=== PATIENT | female | born 1995 | race Caucasian/White ===

== ENCOUNTER → 2018-09-01 04:52 | Observation (INO) ==
[2018-09-01 03:03] LABS: Bilirubin,Urine Negative (Negative); Blood,Urine Negative (Negative); Clarity,Urine Clear (Clear); Color,Urine Yellow (Yellow); Glucose,Urine (UA) Normal (Normal); Ketones,Urine 80 mg/dL (Negative); Leukocyte Esterase,Urine Small (Negative); Nitrite,Urine Negative (Negative); Protein,Urine Negative (Neg-Trace); Specific Gravity,Urine 1.021 (1.010-1.025); Urobilinogen,Urine Normal (Normal)
[2018-09-01 03:05] LABS: Bacteria,Urine None Seen per hpf (None-Few); Hyaline Casts,Urine None Seen per lpf (None-Few); RBC,Urine 0-3 per hpf (0-3); Squamous Epithelial Cell,Urine Many per lpf (None-Few)
--- NOTE | 2018-09-01 03:19 | OB/GYN Progress Note ---
Date of Encounter: 09/01/18 Time of Encounter: 03:16 - Assessment and Plan (1) 20 weeks gestation of Current Visit: Yes Status: Acute Patient admitted for observation for lower abdominal pain in (2) Cerebral palsy with spastic/ataxic diplegia Current Visit: No Status: Chronic Subjective - Subjective Principal diagnosis: lower abdominal pain Interval history: Patient is a 23 y/o @ 20w1d presents to labor and delivery with complaints of lower abdominal pain that started around 10pm. Patient denies intercourse in past 24-48 hours, denies LOF or VB. Patient denies dysuria or urinary frequency. Patient reports history 34 week delivery. Patient reports she has a c/s under general due to CP. Patient receives care with Dr. Wu and is scheduled on 09/07/2018 for anatomy scan. Antepartum ROS: movement normal, no loss of fluid, no vaginal bleeding Objective - Vital Signs Vital Signs: Intake and Output 08/31/18 08/31/18 09/01/18 15:59 23:59 07:59 Other: Weight 58.967 kg Patient Weight 09/01/18 23:59 Weight 58.967 kg - Exam FHR comments: FHR 150 bpm per Doppler, no contractions noted on toco Auscultation: bilateral: normal Abdomen: Present: normal appearance, soft, gravid. Absent: distention, tenderness Uterus: Present: normal, other (@ umbilicus) Cervical dilation: closed Comments: Speculum exam: Moderate amount of thick white discharge noted. Vaginosis panel collected along with GC/chlamydia cultures. - Labs Labs: Abnormal lab results 80 mg/dL (Negative) H 09/01/18 02:52 Ur Leukocyte Esterase Small (Negative) H 09/01/18 02:52
[2018-09-01 03:21] LABS: Amphetamine Screen,Urine Negative ng/mL (Cutoff=1000); Barbiturate Screen,Urine Negative ng/mL (Cutoff=200); Benzodiazepines Screen,Urine Negative ng/mL (Cutoff=200); Cannabinoid Screen,Urine Negative ng/mL (Cutoff = 50); Cocaine Screen,Urine Negative ng/mL (Cutoff= 300); Opiate Screen,Urine Negative ng/mL (Cutoff=300); Phencyclidine Screen,Urine Negative ng/mL (Cutoff=25)
[2018-09-01 04:17] LABS: Candida DNA Not Detected (Not Detect); Gardnerella DNA Not Detected (Not Detect); Trichomonas DNA Not Detected (Not Detect)
== END | disposition home or self-care (01) ==
LOC: 1NENULAB
PROVIDERS: ADMIT Advanced Practice Midwife; ATTEND Advanced Practice Midwife

== ENCOUNTER → 2018-10-31 22:01 | Observation (INO) ==
[2018-10-31 19:12] LABS: Bilirubin,Urine Negative (Negative); Blood,Urine Negative (Negative); Clarity,Urine Cloudy (Clear); Color,Urine Yellow (Yellow); Glucose,Urine (UA) Normal (Normal); Ketones,Urine 40 mg/dL (Negative); Leukocyte Esterase,Urine Small (Negative); Nitrite,Urine Negative (Negative); PH,Urine 6.5 pH Units (5.0-8.0); Protein,Urine Negative (Neg-Trace); Specific Gravity,Urine 1.023 (1.010-1.025); Urobilinogen,Urine Normal (Normal)
[2018-10-31 19:13] LABS: Bacteria,Urine Few per hpf (None-Few); Hyaline Casts,Urine None Seen per lpf (None-Few); RBC,Urine 0-3 per hpf (0-3); Squamous Epithelial Cell,Urine Many per lpf (None-Few)
[2018-10-31 19:19] LABS: Amphetamine Screen,Urine Negative ng/mL (Cutoff=1000); Barbiturate Screen,Urine Negative ng/mL (Cutoff=200); Benzodiazepines Screen,Urine Negative ng/mL (Cutoff=200); Cannabinoid Screen,Urine Negative ng/mL (Cutoff = 50); Cocaine Screen,Urine Negative ng/mL (Cutoff= 300); Opiate Screen,Urine Negative ng/mL (Cutoff=300); Phencyclidine Screen,Urine Negative ng/mL (Cutoff=25)
[2018-10-31 19:22] LABS: Yeast,Urine Few per hpf (None Seen)
[2018-10-31 21:15] LABS: Basophils % 0.3 %; Eosinophils # 0.1 K/mcL (0.0-0.6); Eosinophils % 1.1 %; Hemoglobin 13.5 g/dL (11.5-15.4); Immature Granulocytes % 0.3 % (0-4); Lymphocytes # 1.7 K/mcL (0.6-4.6); Lymphocytes % 19.2 %; Mean Corpuscular HGB Conc 34.6 g/dL (31.6-35.5); Mean Corpuscular Volume 89.4 fL (83.0-100.0); Monocytes # 0.6 K/mcL (0.0-1.3); Monocytes % 6.8 %; Neutrophils # 6.5 K/mcL (1.6-8.9); Platelet Count 233 K/mcL (140-400); Red Blood Count 4.36 M/mcL (3.82-4.97); Red Cell Distribution Width 12.9 % (11.5-14.5); Segmented Neutrophils % 72.3 %
[2018-10-31 21:27] LABS: BUN/Creatinine Ratio 18 (6-26); Blood Urea Nitrogen 9 mg/dL (6-20); Calcium 8.7 mg/dL (8.6-10.3); Carbon Dioxide 21 mEq/L (23-29); Chloride 104 mEq/L (98-107); Glucose 92 mg/dL (70-105); Osmolality,Calculated 280 (280-300); Potassium 3.1 mEq/L (3.5-5.1); Sodium 136 mEq/L (136-145); eGFR For African Americans > 60 (> 60); eGFR For Non-African Americans > 60 (> 60)
--- NOTE | 2018-10-31 21:43 | Discharge Summary ---
Date of Encounter: 10/31/18 Time of Encounter: 21:42 - Discharge Diagnosis (1) 28 weeks gestation of Priority: Primary Status: Acute Comments: Follow up with Dr. Wu within 7 days PTL parameters discussed Discharge home (2) Abdominal cramping affecting Priority: Secondary Status: Acute Comments: SVE unchanged after 2 hours /-2 BMZ administered at 2000 - pt will return in 24 hours for 2nd dose. - Discharge Medications Prescriptions: No Action Pnv No.121/Iron/Folic Acid [ Multivitamin Tablet] 1 each PO DAILY #90 tablet Ondansetron ODT [Zofran ODT] 1 tab PO DAILY Home Medications: Pnv No.121/Iron/Folic Acid [ Multivitamin Tablet] 1 each PO DAILY #90 tablet 05/09/18 [Rx] Ondansetron ODT [Zofran ODT] 1 tab PO DAILY 10/31/18 [History] Allergies/Adverse Reactions: Allergy/AdvReac Type Severity Reaction Status Date / Time No Known Allergies Allergy Verified 05/09/18 15:41 Data Procedures and tests throughout hospitalization: Laboratory Tests 10/31/18 10/31/18 10/31/18 19:05 19:05 20:10 WBC 9.0 RBC 4.36 Hgb 13.5 Hct 39.0 MCV 89.4 MCH 31.0 MCHC 34.6 RDW 12.9 Plt Count 233 MPV 10.0 Immature Gran % 0.3 Seg Neutrophils % 72.3 Lymphocytes % 19.2 Monocytes % 6.8 Eosinophils % 1.1 Basophils % 0.3 Neutrophils # 6.5 Lymphocytes # 1.7 Monocytes # 0.6 Eosinophils # 0.1 Basophils # 0.0 Sodium Potassium Chloride Carbon Dioxide BUN Creatinine Est GFR ( Amer) Est GFR (Non-Af Amer) BUN/Creatinine Ratio Glucose Calculated Osmolality Calcium Urine Color Yellow Urine Clarity Cloudy A Urine pH 6.5 Ur Specific [place] 1.023 Urine Protein Negative Urine Glucose (UA) Normal Urine Ketones 40 H Urine Blood Negative Urine Nitrite Negative Urine Bilirubin Negative Urine Urobilinogen Normal Ur Leukocyte Esterase Small H Urine Microscopic RBC 0-3 Urine Microscopic WBC 5-15 H Ur Squamous Epith Cells Many H Urine Bacteria Few Hyaline Casts None Seen Urine Yeast Few H Ur Culture Indicated? YES A Urine Opiates Screen Negative Ur Buprenorphine Scrn Negative Ur Barbiturates Screen Negative Ur Phencyclidine Scrn Negative Ur Amphetamines Screen Negative U Benzodiazepines Scrn Negative Urine Cocaine Screen Negative U Marijuana (THC) Screen Negative Ur Drug Screen Interp See Below 10/31/18 20:10 WBC RBC Hgb Hct MCV MCH MCHC RDW Plt Count MPV Immature Gran % Seg Neutrophils % Lymphocytes % Monocytes % Eosinophils % Basophils % Neutrophils # Lymphocytes # Monocytes # Eosinophils # Basophils # Sodium 136 Potassium 3.1 L Chloride 104 Carbon Dioxide 21 L BUN 9 Creatinine 0.50 L Est GFR ( Amer) > 60 Est GFR (Non-Af Amer) > 60 BUN/Creatinine Ratio 18 Glucose 92 Calculated Osmolality 280 Calcium 8.7 Urine Color Urine Clarity Urine pH Ur Specific [place] Urine Protein Urine Glucose (UA) Urine Ketones Urine Blood Urine Nitrite Urine Bilirubin Urine Urobilinogen Ur Leukocyte Esterase Urine Microscopic RBC Urine Microscopic WBC Ur Squamous Epith Cells Urine Bacteria Hyaline Casts Urine Yeast Ur Culture Indicated? Urine Opiates Screen Ur Buprenorphine Scrn Ur Barbiturates Screen Ur Phencyclidine Scrn Ur Amphetamines Screen U Benzodiazepines Scrn Urine Cocaine Screen U Marijuana (THC) Screen Ur Drug Screen Interp Labs on day of discharge: Labs from last 24 hours 10/31/18 10/31/18 10/31/18 20:10 20:10 19:05 WBC 9.0 RBC 4.36 Hgb 13.5 Hct 39.0 MCV 89.4 MCH 31.0 MCHC 34.6 RDW 12.9 Plt Count 233 MPV 10.0 Immature Gran % 0.3 Seg Neutrophils % 72.3 Lymphocytes % 19.2 Monocytes % 6.8 Eosinophils % 1.1 Basophils % 0.3 Neutrophils # 6.5 Lymphocytes # 1.7 Monocytes # 0.6 Eosinophils # 0.1 Basophils # 0.0 Sodium 136 Potassium 3.1 L Chloride 104 Carbon Dioxide 21 L BUN 9 Creatinine 0.50 L Est GFR ( Amer) > 60 Est GFR (Non-Af Amer) > 60 BUN/Creatinine Ratio 18 Glucose 92 Calculated Osmolality 280 Calcium 8.7 Urine Color Yellow Urine Clarity Cloudy A Urine pH 6.5 Ur Specific [place] 1.023 Urine Protein Negative Urine Glucose (UA) Normal Urine Ketones 40 H Urine Blood Negative Urine Nitrite Negative Urine Bilirubin Negative Urine Urobilinogen Normal Ur Leukocyte Esterase Small H Urine Microscopic RBC 0-3 Urine Microscopic WBC 5-15 H Ur Squamous Epith Cells Many H Urine Bacteria Few Hyaline Casts None Seen Urine Yeast Few H Ur Culture Indicated? YES A Urine Opiates Screen Ur Buprenorphine Scrn Ur Barbiturates Screen Ur Phencyclidine Scrn Ur Amphetamines Screen U Benzodiazepines Scrn Urine Cocaine Screen U Marijuana (THC) Screen Ur Drug Screen Interp 10/31/18 19:05 WBC RBC Hgb Hct MCV MCH MCHC RDW Plt Count MPV Immature Gran % Seg Neutrophils % Lymphocytes % Monocytes % Eosinophils % Basophils % Neutrophils # Lymphocytes # Monocytes # Eosinophils # Basophils # Sodium Potassium Chloride Carbon Dioxide BUN Creatinine Est GFR ( Amer) Est GFR (Non-Af Amer) BUN/Creatinine Ratio Glucose Calculated Osmolality Calcium Urine Color Urine Clarity Urine pH Ur Specific [place] Urine Protein Urine Glucose (UA) Urine Ketones Urine Blood Urine Nitrite Urine Bilirubin Urine Urobilinogen Ur Leukocyte Esterase Urine Microscopic RBC Urine Microscopic WBC Ur Squamous Epith Cells Urine Bacteria Hyaline Casts Urine Yeast Ur Culture Indicated? Urine Opiates Screen Negative Ur Buprenorphine Scrn Negative Ur Barbiturates Screen Negative Ur Phencyclidine Scrn Negative Ur Amphetamines Screen Negative U Benzodiazepines Scrn Negative Urine Cocaine Screen Negative U Marijuana (THC) Screen Negative Ur Drug Screen Interp See Below Date of admission: 10/31/18 18:36 Discharging clinician: Lakshmi Brooks Anticipated date of discharge: 10/31/18 - Patient Status Disposition: Home, Self-Care Condition: Good Functional capacity at discharge: independent ambulation Overall status at discharge: patient is progressing back to baseline - Discharge Instructions Follow Up With: aLkshmi Wu MD [Partnered Physician] - - Diet and Activity Activity: increase activity as tolerated Diet: regular diet 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 She states that started the night of October 29. She called Dr. Suarez and was advised to come in to be seen. She declined to follow this advice because the cramping stopped. She reports she was on this on all day yesterday and all day today in the cramping return this afternoon when she was in the pool. She reports she has not drink very much water. She does have a history of labor and so her cervix was examined and found to be 1/70/-2. She was monitored for 2 hours with no contractions. She was given a liter bolus of LR. Cervix was unchanged after 2 hours. She will return tomorrow evening at 2000 for second dose of betamethasone. Time Attestation: Total time spent providing and/or coordinating discharge services: Time Spent: Less than 30 minutes Exam - Constitutional General appearance IM: A&O X 3, pleasant, no acute distress, thin, answers questions appropriately - Respiratory Respiratory exam: Present: CTAB - Cardiovascular Cardiovascular exam IM: Present: RRR, +S1, +S2 - GI/Abdominal GI/Abdominal exam IM: normal bowel sounds, no peritoneal signs - Rectal Rectal exam: deferred - Uterine Tone: Firm - Extremities Exam Extremities exam IM: Present: full ROM, normal capillary refill, normal inspection, radial pulses palpable and symmetrical - Neurological Exam Neurological exam: alert, CN II-XII intact, normal gait, oriented X3, reflexes normal, no focal deficits, strengths equal and symetr throughout - VTE Reasons for not Prescribing Prophylaxis: Treatment not Indicated - Low risk for VTE
[~2018-10-31 22:01] MED LIST: Betamethasone Acet/SodPhos 30 MG/5 ML VIAL IM SCH; Ringers Solution, Lactated 1,000 ML IVC ONE
== END | disposition home or self-care (01) ==
LOC: 1NENULAB
PROVIDERS: ADMIT Obstetrics & Gynecology; ATTEND Obstetrics & Gynecology

== ENCOUNTER 2018-12-15 17:33 | Observation (INO) ==
[2018-12-15 18:19] LABS: Bilirubin,Urine Small (Negative); Blood,Urine Negative (Negative); Clarity,Urine Clear (Clear); Color,Urine Yellow (Yellow); Glucose,Urine (UA) 100 mg/dL (Normal); Ketones,Urine Negative (Negative); Leukocyte Esterase,Urine Small (Negative); Nitrite,Urine Negative (Negative); Protein,Urine Negative (Neg-Trace); Specific Gravity,Urine 1.026 (1.010-1.025); Urobilinogen,Urine Normal (Normal)
[2018-12-15 18:21] LABS: Bacteria,Urine Few per hpf (None-Few); Hyaline Casts,Urine None Seen per lpf (None-Few); Squamous Epithelial Cell,Urine Many per lpf (None-Few)
[2018-12-15 18:29] LABS: Amphetamine Screen,Urine Negative ng/mL (Cutoff=1000); Barbiturate Screen,Urine Negative ng/mL (Cutoff=200); Benzodiazepines Screen,Urine Negative ng/mL (Cutoff=200); Cannabinoid Screen,Urine Negative ng/mL (Cutoff = 50); Cocaine Screen,Urine Negative ng/mL (Cutoff= 300); Opiate Screen,Urine Negative ng/mL (Cutoff=300); Phencyclidine Screen,Urine Negative ng/mL (Cutoff=25)
--- NOTE | 2018-12-15 19:37 | Discharge Summary ---
Date of Encounter: 12/15/18 Time of Encounter: 19:38 - Discharge Diagnosis (1) 35 weeks gestation of Priority: Primary Status: Acute Comments: Patient her for labor evaluation No cervical change during exam Dr. Newton aware of exam. Patient was offered to stay for IV hydration. Patient declined and asked to go home at this time. - Discharge Medications Prescriptions: No Action Pnv No.121/Iron/Folic Acid [ Multivitamin Tablet] 1 each PO DAILY #90 tablet Ondansetron ODT [Zofran ODT] 1 tab PO DAILY Tylenol 500 mg Home Medications: Pnv No.121/Iron/Folic Acid [ Multivitamin Tablet] 1 each PO DAILY #90 tablet 05/09/18 [Rx] Ondansetron ODT [Zofran ODT] 1 tab PO DAILY 10/31/18 [History] Tylenol 500 mg 12/15/18 [History] Allergies/Adverse Reactions: Allergy/AdvReac Type Severity Reaction Status Date / Time No Known Allergies Allergy Verified 05/09/18 15:41 Data Procedures and tests throughout hospitalization: Laboratory Tests 12/15/18 12/15/18 18:00 18:00 Urine Color Yellow Urine Clarity Clear Urine pH 6.0 Ur Specific [place] 1.026 H Urine Protein Negative Urine Glucose (UA) 100 H Urine Ketones Negative Urine Blood Negative Urine Nitrite Negative Urine Bilirubin Small H Urine Urobilinogen Normal Ur Leukocyte Esterase Small H Urine Microscopic RBC 5-15 H Urine Microscopic WBC 3-5 H Ur Squamous Epith Cells Many H Urine Bacteria Few Hyaline Casts None Seen Ur Culture Indicated? YES A Urine Opiates Screen Negative Ur Buprenorphine Scrn Negative Ur Barbiturates Screen Negative Ur Phencyclidine Scrn Negative Ur Amphetamines Screen Negative U Benzodiazepines Scrn Negative Urine Cocaine Screen Negative U Marijuana (THC) Screen Negative Ur Drug Screen Interp See Below Labs on day of discharge: Labs from last 24 hours 12/15/18 12/15/18 18:00 18:00 Urine Color Yellow Urine Clarity Clear Urine pH 6.0 Ur Specific [place] 1.026 H Urine Protein Negative Urine Glucose (UA) 100 H Urine Ketones Negative Urine Blood Negative Urine Nitrite Negative Urine Bilirubin Small H Urine Urobilinogen Normal Ur Leukocyte Esterase Small H Urine Microscopic RBC 5-15 H Urine Microscopic WBC 3-5 H Ur Squamous Epith Cells Many H Urine Bacteria Few Hyaline Casts None Seen Ur Culture Indicated? YES A Urine Opiates Screen Negative Ur Buprenorphine Scrn Negative Ur Barbiturates Screen Negative Ur Phencyclidine Scrn Negative Ur Amphetamines Screen Negative U Benzodiazepines Scrn Negative Urine Cocaine Screen Negative U Marijuana (THC) Screen Negative Ur Drug Screen Interp See Below Date of admission: 12/15/18 17:33 Discharging clinician: Jeannie Stock Anticipated date of discharge: 12/15/18 - Patient Status Disposition: Home, Self-Care Condition: Good Functional capacity at discharge: independent ambulation - Discharge Instructions Follow Up With: Lakshmi Wu MD [Partnered Physician] - - Diet and Activity Activity: increase activity as tolerated Diet: regular diet 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 Patient is unsure if pain is labor or related to her CP. Patient denies LOF, VB or regular contractions. Time Attestation: Total time spent providing and/or coordinating discharge services: Time Spent: Less than 30 minutes Exam - Constitutional General appearance IM: A&O X 3, pleasant, answers questions appropriately - Respiratory Respiratory exam: Present: CTAB - Cardiovascular Cardiovascular exam IM: Present: RRR, +S1, +S2 - GI/Abdominal GI/Abdominal exam IM: normal bowel sounds - Extremities Exam Extremities exam IM: Present: full ROM, normal capillary refill, normal inspection - Neurological Exam Neurological exam: alert, oriented X3, reflexes normal - Other Additional findings: FHR 145 bpm moderate variability +15x15 accels no decels noted. Contractions 2-3 min apart. CAt. 1 tracing. SVE 2/50 per RN - VTE Reasons for not Prescribing Prophylaxis: Treatment not Indicated - Low risk for VTE
== END 2018-12-15 19:40 | disposition home or self-care (01) ==
LOC: 1NENULAB
PROVIDERS: ADMIT Advanced Practice Midwife; ATTEND Advanced Practice Midwife

== ENCOUNTER 2018-12-30 14:26 | Observation (INO) ==
[2018-12-30 15:16] LABS: Bilirubin,Urine Small (Negative); Blood,Urine Negative (Negative); Clarity,Urine Turbid (Clear); Color,Urine Dark Yellow (Yellow); Glucose,Urine (UA) Normal (Normal); Ketones,Urine 15 mg/dL (Negative); Leukocyte Esterase,Urine Moderate (Negative); Nitrite,Urine Negative (Negative); PH,Urine 5.5 pH Units (5.0-8.0); Protein,Urine Trace mg/dL (Neg-Trace); Specific Gravity,Urine 1.026 (1.010-1.025); Urobilinogen,Urine Normal (Normal)
[2018-12-30 15:22] LABS: Bacteria,Urine Few per hpf (None-Few); RBC,Urine 0-3 per hpf (0-3); Squamous Epithelial Cell,Urine Many per lpf (None-Few); WBC,Urine 30-50 per hpf (0-3)
[2018-12-30 15:35] LABS: Amphetamine Screen,Urine Negative ng/mL (Cutoff=1000); Barbiturate Screen,Urine Negative ng/mL (Cutoff=200); Benzodiazepines Screen,Urine Negative ng/mL (Cutoff=200); Cannabinoid Screen,Urine Negative ng/mL (Cutoff = 50); Cocaine Screen,Urine Negative ng/mL (Cutoff= 300); Opiate Screen,Urine Negative ng/mL (Cutoff=300); Phencyclidine Screen,Urine Negative ng/mL (Cutoff=25)
[2018-12-30 15:42] LABS: Mucus,Urine Few (Few)
--- NOTE | 2018-12-30 15:55 | OB/GYN Progress Note ---
Date of Encounter: 12/30/18 Time of Encounter: 15:55 - Assessment and Plan (1) 37 weeks gestation of Current Visit: Yes Status: Acute NST reactive Urinalysis - dehydrated Encouraged PO hydration RX given for phenergan Discharge home with labor precautions Follow up in the office with routine care and PRN POC per consult with Dr Newton (2) NST (non-stress test) reactive Current Visit: Yes Status: Acute (3) Dehydration Current Visit: Yes Status: Acute (4) Nausea and vomiting during Current Visit: Yes Status: Acute Subjective - Subjective Principal diagnosis: Cramping and feeling faint Interval history: Ms Plunkett is a at 34 weeks and 4 days that presents to triage with c/o cramps that took her breath away and made her feel like she was going to faint. She states positive movement. She denies headaches, vision changes, epigastric pain, leaking of fluid, and vaginal bleeding. She has had one previous C/S and is planning on a repeat with a tubal. She is seen by Dr Wu for her care. Patient states that the past few days her zofran is no longer keeping her nausea and vomiting under control and she is unable to keep her meals down. Antepartum ROS: movement normal, contractions, no loss of fluid, no vaginal bleeding Objective - Vital Signs Vital Signs: Intake and Output 12/29/18 12/30/18 12/30/18 23:59 07:59 15:59 Other: Weight 65.2 kg Patient Weight 12/30/18 23:59 Weight 65.2 kg - Exam FHR: auscultation normal, category 1 FHR comments: Baseline 155 with moderate variability and >15 x 15 accels and no decels. 2 contractions noted during her time here. Auscultation: bilateral: normal Abdomen: Present: normal appearance, soft, gravid Uterus: Present: normal. Absent: firm Cervical dilation: 1 - Labs Labs: Abnormal lab results Urine Clarity Turbid (Clear) A 12/30/18 14:50 Ur Specific [place] 1.026 (1.010-1.025) H 12/30/18 14:50 Urine Ketones 15 mg/dL (Negative) H 12/30/18 14:50 Urine Bilirubin Small (Negative) H 12/30/18 14:50 Ur Leukocyte Esterase Moderate (Negative) H 12/30/18 14:50 Urine Microscopic WBC 30-50 per hpf (0-3) H 12/30/18 14:50 Ur Squamous Epith Cells Many per lpf (None-Few) H 12/30/18 14:50 Ur Culture Indicated? YES (NO) A 12/30/18 14:50
== END 2018-12-30 16:01 | disposition home or self-care (01) ==
LOC: 1NENULAB
PROVIDERS: ADMIT Advanced Practice Midwife; ATTEND Advanced Practice Midwife

== ENCOUNTER 2019-01-13 09:00 | Inpatient (IN) ==
[2019-01-13] MEDS ORDERED: Metoclopramide 10 MG/2 ML VIAL IVP ONE (09:16)
[2019-01-13] MEDS ORDERED: CeFAZolin Premix DUPLEX 2,000 MG/50 ML BAG IVPB ONE (09:16)
[2019-01-13] MEDS ORDERED: Ringers Solution, Lactated 1,000 ML IVC ONE (09:16)
[2019-01-13] MEDS ORDERED: Famotidine 20 MG/2 ML VIAL IVP ONE (09:16)
[2019-01-13] MEDS ORDERED: Ringers Solution, Lactated 1,000 ML IVC SCH (09:30)
[2019-01-13 10:20] LABS: Basophils % 0.5 %; Eosinophils % 0.5 %; Hematocrit 40.2 % (35.3-44.9); Hemoglobin 13.4 g/dL (11.5-15.4); Immature Granulocytes % 0.1 % (0-4); Lymphocytes # 1.6 K/mcL (0.6-4.6); Mean Corpuscular HGB Conc 33.3 g/dL (31.6-35.5); Mean Corpuscular Hemoglobin 28.9 pg (28.0-33.3); Mean Corpuscular Volume 86.8 fL (83.0-100.0); Mean Platelet Volume 10.7 fL (9.4-12.4); Monocytes # 0.5 K/mcL (0.0-1.3); Monocytes % 6.1 %; Neutrophils # 5.2 K/mcL (1.6-8.9); Platelet Count 242 K/mcL (140-400); Red Blood Count 4.63 M/mcL (3.82-4.97); Red Cell Distribution Width 13.1 % (11.5-14.5); Segmented Neutrophils % 70.8 %; White Blood Count 7.4 K/mcL (4.3-11.1)
[2019-01-13 10:31] LABS: Amphetamine Screen,Urine Negative ng/mL (Cutoff=1000); Barbiturate Screen,Urine Negative ng/mL (Cutoff=200); Benzodiazepines Screen,Urine Negative ng/mL (Cutoff=200); Cannabinoid Screen,Urine Negative ng/mL (Cutoff = 50); Cocaine Screen,Urine Negative ng/mL (Cutoff= 300); Opiate Screen,Urine Negative ng/mL (Cutoff=300); Phencyclidine Screen,Urine Negative ng/mL (Cutoff=25)
--- NOTE | 2019-01-13 10:54 | History & Physical Report ---
Date of Encounter: 01/13/19 Time of Encounter: 10:52 24 Hour HP Update - Instructions Instructions: If the History and Physical is less than 30 days old and was completed prior to A.M. admission and or procedure and has NOT been updated on calendar day of procedure please complete this update prior to performing procedure. - Update Patient reports changes in Medical Condition: Yes Changes in examination, assessment, or condition: Yes Changes in Medication: No Preop tests/diagnostics Reviewed: Yes Pre-Op MRSA Screen: Negative Surgery Remains Indicated: Yes Consent for Planned Operative Procedure(s) Verified: Yes - Pre-Operative Checklist Preoperative Checklist Indicated: Yes Prophylactic Antibiotic Ordered: Yes Home Medications Include Beta Binh: No Beta Binh Taken Today (Day of Surgery): No Beta Binh Taken Yesterday (Day Prior to Surgery): No Is VTE Prophylaxis Indicated?: Yes (Patient with complaints of nausea and vomiting and anxiety attack. Discussed exam and findings with fevers. No sore throat. No head congestion.)
[2019-01-13] MEDS ORDERED: *HR* Promethazine 25 MG/ML VIAL IVP ONE (10:57)
[2019-01-13] MEDS ORDERED: Scopolamine Patch 1.5 MG PATCH.TD72 TD ONE ×2 (10:58→10:59)
[2019-01-13] MEDS ORDERED: Dexamethasone 4 MG/ML VIAL IVP ONE (10:59)
[2019-01-13] MEDS ORDERED: *HR* Promethazine 25 MG/ML VIAL IVP PRN (10:59)
[2019-01-13] MEDS ORDERED: Ondansetron 4 MG/2 ML VIAL IVP PRN ×2 (11:01→15:55)
[2019-01-13] MEDS ORDERED: Oxytocin 20 units/ LR 1000 mL 40 UNIT/2,000 ML BAG IVC ONE (11:02)
[2019-01-13] MEDS ORDERED: Acetaminophen IV 1,000 MG/100 ML INFUS..BTL IVPB ONE (11:02)
[2019-01-13] MEDS ORDERED: *HR* Morphine Sulfate/PF 10 MG/10 ML AMPUL ONE (11:07)
[2019-01-13] MEDS ORDERED: *HR* FentaNYL (PF) 100 MCG/2 ML VIAL ONE (11:07)
[2019-01-13] MEDS ORDERED: *HR* Oxytocin 10 UNIT/ML VIAL IM ONE (11:12)
[2019-01-13] MEDS ORDERED: Ringers Solution, Lactated 1,000 ML ONE (11:12)
[2019-01-13] MEDS ORDERED: *HR* Phenylephrine 10 MG/ML VIAL ONE (11:49)
--- NOTE | 2019-01-13 12:32 | OB/GYN Procedure Note ---
Section - Date of procedure: 01/13/19 Preop diagnosis: desires repeat , desires sterilization Post-op diagnosis: same Procedure: section, bilateral tubal ligation Surgeon: Radha Finch Quantitated Blood Loss: 500 Was there an operations and intelligence assistant present: No Anesthesiologist: Jannette Foy Access Rn: Isaac Garcia Anesthesia Type: Spinal section complications: none Disposition: Post floor Specimens: Cord blood, Right tube segment, Left tube segment - Infant (s) A Delivery Date: 01/13/19 Infant Delivery Time: 11:59 Presentation: vertex Position: JOHNNY Route of delivery: other Gender: Male Viability: Viable Pounds: 7 Ounces: 0 Gram Weight: 3.18 kg at 1 minute: 8 at 5 minutes: 9 Shoulder Dystocia: not encountered Specimens collected: cord blood Placenta: partial extraction Cord: 3 umbilical vessels - Narrative Narrative: Prep diagnosis is term , prior section, desires sterilization Postoperative diagnosis: Same Surgeon: Dr. Finch Anesthesia: Spinal Blood loss: 500 mL Medications: None Specimens: Cord blood Findings: Viable male vertex presentation Apgars 8 and 9 at one and 5 minutes respectively. Normal-appearing uterus and adnexa Deery and was taken to the operating suite and after adequate spinal anesthesia was assured prepped and draped in the usual sterile fashion. A Pfannenstiel incision was created and taken down through the subcutaneous fat and fascia to the rectus muscles. Rectus muscles were divided in the midline perineal cavity was entered superiorly without consequence to bowel or bladder. Bladder flap was created. Uterus was entered in a low transverse fashion. Viable male was atraumatically delivered from the uterus without difficulty. Cord was doubly clamped and cut and infant handed to our nurses in attendance. When all placental fragments were swept clean from the uterus the uterus was closed 2 lengths of Vicryl running interlocked fashion. Copious irrigation was performed surgical sites were inspected and hemostasis was assured. Bilateral fallopian tubes were identified by their fimbriated end. A midportion of tube was elevated doubly suture ligated and transected. Hemostasis was assured. The uterus was replaced within the abdominal cavity. Irrigation was performed. S urgical sites were inspected and ensured to be correct 2. When all sponge lap and needle and instrument counts correct 2 the fascia was closed with 2 lengths of Vicryl. The skin was closed with geoff. And the procedure all sponge lap needle and instrument counts were correct 2. The patient her partner and the baby were together without any difficulty.
--- NOTE | 2019-01-13 12:43 | Anesthesia Evaluation PreOp ---
Date of Encounter: 01/13/19 Time of Encounter: 11:15 - Past History Planned Operation: Repeat C/S + BPS Cardiac History: Denies any Significant Hx Pulmonary History: Denies Any Significant HX BEVELER History: Other (cerebral palsy) Other Medical History: Denies Any Significant HX Anesthesia History: No Prior Anesthetic Complications (denies personal and family h/o GA complications), Past Anesthesia (C/S x 1 under GA) : Yes Alcohol Use: none Drug use: none Medications and Allergies No Known Home Drugs 01/13/19 [History] Allergy/AdvReac Type Severity Reaction Status Date / Time No Known Allergies Allergy Verified 01/13/19 09:41 - Meds/Allergy Pre-op Review Medications Reviewed: Yes Allergies Reviewed: Yes Beta Blockers on Current Med List: No Anesthesia Results - Labs 01/13/19 09:58 Anesthesia Exam O2 Sat Height 1.68 m Height 1.68 m Weight 66.1 kg Weight 66.1 kg NPO (# of Hours): solids > 8hrs Pain Scale: 0 Pain Scale Used: Numeric (1 - 10) - HEENT Pupil (Motor): Pupils equal Mallampati: II Teeth: Normal Oral Opening: Greater than 3 - BEVELER LOC: Oriented BEVELER Motor: Normal RUE, Normal LUE, Normal Face, Deficit RLE, Deficit LLE BEVELER Sensory: Normal: RUE, LUE, RLE, LLE, Face - Cardiac Rhythm: Regular Murmur: None - Pulmonary Breath Sounds: bilateral Clear Respiratory Effort: Symmetrical Anesthesia Assess/Plan ASA Score: 2 Level of consciousness: Cooperative, Oriented, Anxious Anesthetic Plan: Spinal (patient's BLE are mal-rotated inwards, RLE > LLE resulting in gait disturbances for patient. Patient denies foot drop. Patient does have lower back pain that she attributes to her CP.) Autologous Blood: No Monitoring Plan: Standard Monitors Recovery Plan: PACU
--- NOTE | 2019-01-13 12:48 | Anesthesia Procedures ---
Date of Encounter: 01/13/19 Time of Encounter: 11:42 Procedures: Anesthesia - Epidural/Spinal Patient ID/Chart reviewed: Yes Patient examined: Yes OB Eval: Gestational age: 39 weeks 2 days OB Eval: : 2 OB Eval: Hx Para: 1 OB Eval: Contractions: Non-stressed pattern Consent Obtained: Yes Supplemental Oxygen: None/Room Air Site Prep: Aseptic Technique, Sterile prep and drape, 0.5% Chlorhexidine/Alcohol Patient position: upright Local Anesthetic: Lidocaine 1% Amount of Local Anesthetic used: 3 Interspace Used: L4-L5 Blood: No CSF: Yes Paresthesia: No Spinal Needle Gauge: 25 (3.5" pencan needle) Spinal Dose: see anesthesia record Procedure: successful on 1st attempt; patient tolerated procedure well; VSS Vitals + FHT's: see anesthesia record
--- NOTE | 2019-01-13 12:50 | Anesthesia Evaluation Post Op ---
Date of Encounter: 01/13/19 Time of Encounter: 12:49 - Vital Signs Vital Signs: 92/50, HR 63, SpO2 93%, T97.8F, RR16 - Lungs Lungs: Clear Ascult./Percussion - Airway Airway: Non-obstructed - Cardiovascular Regular Rate - Mental Status Mental Status: Alert & Oriented, Answers Appropriately - Pain Pain Scale: 0 Pain Scale used: Numeric (1 - 10) - Nausea Vomiting Nausea Vomiting: Not Present - Hydration Hydration: NPO - Discharge PostOp Status: Transfer Patient to floor
[2019-01-13] MEDS ORDERED: Simethicone 80 MG TAB.CHEW PO PRN (15:55)
[2019-01-13] MEDS ORDERED: Metoclopramide 10 MG/2 ML VIAL IVP PRN (15:55)
[2019-01-13] MEDS ORDERED: Acetaminophen 325 MG TABLET PO PRN (15:55)
[2019-01-13] MEDS ORDERED: Rho Immune Globulin 1,500 UNIT SYRINGE IM ONE (15:55)
[2019-01-13] MEDS ORDERED: Sennosides 8.6 MG TABLET PO PRN (15:55)
[2019-01-13] MEDS ORDERED: Oxytocin 20 units/ LR 1000 mL 20 UNIT/1,000 ML BAG IVC SCH (15:55)
[2019-01-13] MEDS ORDERED: Menthol 9.1 MG LOZENGE PO PRN (19:36)
[2019-01-13] MEDS: Ibuprofen 600 MG TABLET PO PRN (19:48)
[2019-01-14] MEDS: *HR* OxyCODONE/APAP 5/325 TABLET PO PRN ×4 (04:24→23:32)
[2019-01-14 05:59] LABS: Basophils % 0.2 %; Eosinophils % 0.2 %; Hematocrit 32.8 % (35.3-44.9); Immature Granulocytes % 0.3 % (0-4); Lymphocytes # 1.9 K/mcL (0.6-4.6); Lymphocytes % 15.7 %; Mean Corpuscular HGB Conc 32.9 g/dL (31.6-35.5); Mean Corpuscular Hemoglobin 29.4 pg (28.0-33.3); Mean Corpuscular Volume 89.4 fL (83.0-100.0); Mean Platelet Volume 10.9 fL (9.4-12.4); Monocytes # 0.9 K/mcL (0.0-1.3); Platelet Count 206 K/mcL (140-400); Red Blood Count 3.67 M/mcL (3.82-4.97); Red Cell Distribution Width 12.7 % (11.5-14.5); Segmented Neutrophils % 76.6 %
[2019-01-14 06:10] LABS: Hemoglobin 10.8 g/dL (11.5-15.4); Neutrophils # 9.4 K/mcL (1.6-8.9); White Blood Count 12.2 K/mcL (4.3-11.1)
[2019-01-14] MEDS: Ibuprofen 600 MG TABLET PO PRN ×3 (08:13→23:32)
[2019-01-14] MEDS: Prenatal Vit/FA 1 EACH TABLET PO SCH (08:13)
--- NOTE | 2019-01-14 11:04 | OB/GYN Progress Note ---
Date of Encounter: 01/14/19 Time of Encounter: 11:01 - Assessment and Plan (1) Status post repeat low transverse section Current Visit: Yes Status: Acute continue routine postop/ care anticipate discharge home tomorrow (2) Cerebral palsy with spastic/ataxic diplegia Current Visit: No Status: Chronic Subjective - Subjective Principal diagnosis: Postop day 1 repeat c/s with BPS Interval history: Patient is postop day 1 repeat c/s with BPS. Patient is meeting day 1 milesto ellen. She is passing gas and ambulating without difficulty. She has geoff for incision closure. Patient reports: appetite normal, voiding normally, pain well controlled, amb ulating normally [place]: doing well, nursing well, bottle feeding Objective - Vital Signs Latest vital signs: Vital Signs Temp Pulse Resp BP Pulse Ox 01/14/19 08:00 97.8 F 73 16 126/89 01/14/19 04:39 97.9 F 77 16 129/93 98 01/14/19 00:05 98.6 F 77 14 108/70 96 01/13/19 20:16 99.1 F 71 15 132/89 95 01/13/19 17:48 98.4 F 61 16 137/85 95 01/13/19 16:41 98.2 F 57 16 133/85 96 01/13/19 16:09 98.0 F 57 16 128/82 96 01/13/19 14:45 98.4 F 51 16 129/84 97 Intake and Output 01/13/19 01/14/19 01/14/19 23:59 07:59 15:59 Intake Total 240 / 480 240 / 480 Output Total 300 / 300 770 / 770 Balance -300 / -300 -530 / -290 240 / -290 Intake: Oral 240 / 480 240 / 480 Output: Catheter 300 / 300 770 / 770 Other: Meal Breakfast Percent of Meal Consumed 90% Stool Characteristics Normal for Patient Weight 65.589 kg Patient Weight 01/14/19 23:59 Weight 65.589 kg - Exam Lungs: bilateral: normal Chest: Normal S1, Normal S2 Extremities: Present: normal Abdomen: Present: normal appearance, soft, gravid Incision: Present: normal, dry, intact, dressed Uterus: Present: normal, firm Fundal Height: 3 (U/3) - Labs Labs: Laboratory Results - last 24 hr 01/14/19 05:29 WBC 12.2 H D RBC 3.67 L Hgb 10.8 L D Hct 32.8 L MCV 89.4 MCH 29.4 MCHC 32.9 RDW 12.7 Plt Count 206 MPV 10.9 Immature Gran % 0.3 Seg Neutrophils % 76.6 Lymphocytes % 15.7 Monocytes % 7.0 Eosinophils % 0.2 Basophils % 0.2 Neutrophils # 9.4 H Lymphocytes # 1.9 Monocytes # 0.9 Eosinophils # 0.0 Basophils # 0.0
[2019-01-15] MEDS: *HR* OxyCODONE/APAP 5/325 TABLET PO PRN ×2 (05:32→10:34)
[2019-01-15] MEDS: Ibuprofen 600 MG TABLET PO PRN ×2 (05:32→14:16)
[2019-01-15 07:39] VITALS: BP 125/89
[2019-01-15] MEDS: Prenatal Vit/FA 1 EACH TABLET PO SCH (08:42)
--- NOTE | 2019-01-15 13:41 | Discharge Summary ---
Date of Encounter: 01/15/19 Time of Encounter: 13:36 - Discharge Diagnosis (1) Status post repeat low transverse section Priority: Primary Status: Acute Comments: S/P Repeat Delivery with BPS Day 2. VSS Pain is well controlled Lochia is light and without clots Tolerating regular diet, passing flatus Voiding without difficulty Bottle feeding Discharge home today POC per consult with Dr Rodriguez - Discharge Medications Prescriptions: New Docusate [Colace] 100 mg PO BID #30 capsule Menthol [Cough Drops] 9.1 mg PO Q2H PRN lozenge PRN Reason: Cough Ferrous Sulfate 325 mg PO DAILY@0800 #90 tablet Simethicone [Gas-X] 80 mg PO TID PRN tab.chew PRN Reason: Dyspepsia Ibuprofen [Motrin] 600 mg PO Q6HR PRN #30 tablet PRN Reason: Cramping OxyCODONE/APAP 5/325 [Percocet 5/325 MG] 1 each PO Q6H PRN 5 Days #20 tablet PRN Reason: Moderate pain 4-6 Acetaminophen [Tylenol] 325 mg PO Q6HR PRN tablet PRN Reason: Fever/Pain Home Medications: Acetaminophen [Tylenol] 325 mg PO Q6HR PRN tablet 01/15/19 [Rx] Docusate [Colace] 100 mg PO BID #30 capsule 01/15/19 [Rx] Ferrous Sulfate 325 mg PO DAILY@0800 #90 tablet 01/15/19 [Rx] Ibuprofen [Motrin] 600 mg PO Q6HR PRN #30 tablet 01/15/19 [Rx] Menthol [Cough Drops] 9.1 mg PO Q2H PRN lozenge 01/15/19 [Rx] OxyCODONE/APAP 5/325 [Percocet 5/325 MG] 1 each PO Q6H PRN 5 Days #20 tablet 01/15/19 [Rx] Simethicone [Gas-X] 80 mg PO TID PRN tab.chew 01/15/19 [Rx] Allergies/Adverse Reactions: Allergy/AdvReac Type Severity Reaction Status Date / Time No Known Allergies Allergy Verified 01/13/19 09:41 Data Procedures and tests throughout hospitalization: Laboratory Tests 01/13/19 01/13/19 01/14/19 09:50 09:58 05:29 WBC 7.4 12.2 H D RBC 4.63 3.67 L Hgb 13.4 10.8 L D Hct 40.2 32.8 L MCV 86.8 89.4 MCH 28.9 29.4 MCHC 33.3 32.9 RDW 13.1 12.7 Plt Count 242 206 MPV 10.7 10.9 Immature Gran % 0.1 0.3 Seg Neutrophils % 70.8 76.6 Lymphocytes % 22.0 15.7 Monocytes % 6.1 7.0 Eosinophils % 0.5 0.2 Basophils % 0.5 0.2 Neutrophils # 5.2 9.4 H Lymphocytes # 1.6 1.9 Monocytes # 0.5 0.9 Eosinophils # 0.0 0.0 Basophils # 0.0 0.0 Urine Opiates Screen Negative Ur Buprenorphine Scrn Negative Ur Barbiturates Screen Negative Ur Phencyclidine Scrn Negative Ur Amphetamines Screen Negative U Benzodiazepines Scrn Negative Urine Cocaine Screen Negative U Marijuana (THC) Screen Negative Ur Drug Screen Interp See Below Date of admission: 01/13/19 09:06 Primary care physician: PCP NONE Discharging clinician: Lakshmi Mayer Anticipated date of discharge: 01/15/19 - Patient Status Disposition: Home, Self-Care Condition: Good Functional capacity at discharge: independent ambulation Overall status at discharge: patient is progressing back to baseline - Discharge Instructions Follow Up With: NONE,PCP [Primary Care Provider] - Radha Finch MD [Partnered Physician] - - Diet and Activity Activity: increase activity as tolerated Diet: regular diet Hospital Course Reason for admission: IUP at term Delivery: section Episiotomy: none Laceration: none Other procedures: tubal ligation complications: none Discharge diagnosis: IUP at term delivered [place] baby: male Time Attestation: Total time spent providing and/or coordinating discharge services: Time Spent: Less than 30 minutes - VTE Reasons for not Prescribing Prophylaxis: Treatment not Indicated - Low risk for VTE Documentation of Mechanical Device: Intermittent pneumatic compression device Exam - Constitutional Vitals: Temp Pulse Resp BP Pulse Ox 97.8 F 67 14 125/89 97 01/15/19 07:38 01/15/19 07:38 01/15/19 07:38 01/15/19 07:38 01/15/19 07:38 General appearance IM: cooperative, A&O X 3, pleasant - Respiratory Respiratory exam: Present: CTAB. Absent: respiratory distress - Cardiovascular Cardiovascular exam IM: Present: RRR, +S1, +S2. Absent: irregular rhythm - GI/Abdominal GI/Abdominal exam IM: normal bowel sounds Incision: normal (geoff present), dry, intact - Rectal Rectal exam: deferred - Uterine Tone: Firm Uterus Position: 2 Fingers Below Umbilicus, Midline - Extremities Exam Extremities exam IM: Present: normal capillary refill, normal inspection, radial pulses palpable and symmetrical. Absent: calf tenderness - Neurological Exam Neurological exam: alert, oriented X3
== END 2019-01-15 14:25 | disposition home or self-care (01) | DRG 540 ==
LOC: 1NENULAB 09:06 → 1NENUOBS 14:44
PROVIDERS: ADMIT Obstetrics & Gynecology; ATTEND Obstetrics & Gynecology